=== PATIENT | female | born 1995 | race Caucasian/White ===

== ENCOUNTER 2024-08-13 02:03 | Inpatient (IN) | payer BC ==
[~2024-08-13] VITALS: Ht 215.9 cm; Wt 69.9 kg
[2024-08-13 02:14] VITALS: O2SAT 100
[2024-08-13 03:25] LABS: HEMATOCRIT. 41.8 % (36.0-48.0); HEMOGLOBIN. 14.1 g/dL (12.0-16.0); MEAN CORPUSCULAR HEMOGLOBIN 30.5 pg (28.0-32.0); MEAN CORPUSCULAR HGB CONC 33.6 g/dL (31.0-37.0); MEAN CORPUSCULAR VOLUME 90.7 fL (81.0-99.0); MEAN PLATELET VOLUME 8.5 fl (7.4-10.4); PLATELET 230 x1000/uL (130-400); RED BLOOD CELL COUNT 4.61 mill/uL (4.2-5.4); RED CELL DISTRIBUTION WIDTH 13.2 % (11.6-14.6); WHITE BLOOD COUNT 11.9 x1000/uL (4.5-11.0)
[2024-08-13 03:28] LABS: CLARITY URINE CLOUDY (CLEAR); COLOR URINE DARK YELLOW (YELLOW); GLUCOSE URINE NEGATIVE (NEGATIVE); KETONES URINE 1+ (NEGATIVE); LEUKOCYTE ESTERASE URINE 2+ (NEGATIVE); NITRITE URINE POSITIVE (NEGATIVE); OCCULT BLOOD URINE NEGATIVE (NEGATIVE); PH URINE 6.5 (4.5-8.0); PROTEIN URINE 1+ (NEGATIVE); SPECIFIC GRAVITY URINE 1.017 (1.005-1.030)
[2024-08-13 03:29] LABS: CHLORIDE 103 mEq/L (98-107); POTASSIUM 4.2 mEq/L (3.5-5.1); SODIUM 138 mEq/L (136-145)
[2024-08-13 03:30] LABS: CALCIUM 9.8 mg/dL (8.7-10.4); CARBON DIOXIDE 25 mEq/L (21-32)
[2024-08-13 03:35] LABS: CREATININE 0.7 mg/dL (0.6-1.0); GLUCOSE 169 mg/dL (70-105); UREA NITROGEN BLOOD 9 mg/dL (9-23)
[2024-08-13 03:37] LABS: ALANINE AMINOTRANSFERASE 1018 IU/L (10-49); ASPARTATE AMINOTRANSFERASE 900 IU/L (<34); BILIRUBIN DIRECT 2.6 mg/dL (<=3.0); BILIRUBIN TOTAL 4.2 mg/dL (0.1-1.0); PROTEIN TOTAL 7.9 g/dL (6.0-8.3)
[2024-08-13 03:54] LABS: DIFFERENTIAL COMMENT 1
[2024-08-13 04:02] LABS: SQUAMOUS EPITHELIAL CELL URINE FEW /lpf (RARE/1+)
[2024-08-13 04:05] LABS: BACTERIA URINE 4+; RBC URINE 0-2 /hpf (0-2)
[2024-08-13] MEDS: SODIUM CHLORIDE 0.9% 1,000 ML IV ONE ×2 (04:19→04:51)
[2024-08-13] MEDS: MORPHINE SULFATE 4 MG/ML INJ (FOR IV/IM USE) IV STA (04:20)
[2024-08-13] MEDS: ONDANSETRON HCL 4MG/2ML INJ IV STA (04:20)
[2024-08-13] MEDS: CEFTRIAXONE 1GM/50ML 50 ML IV ONE (04:57)
[2024-08-13 05:22] LABS: PLATELET ESTIMATE NORMAL
[2024-08-13 06:15] VITALS: BP 118/76; PULSE 75; RESP 18; TEMP 36.3
[2024-08-13 08:00] VITALS: BP 118/76; PULSE 75; RESP 18; TEMP 36.2
[2024-08-13] MEDS: ACETAMINOPHEN 325MG TABLET PO PRN (11:19)
[2024-08-13 12:00] VITALS: BP 112/72; PULSE 79; RESP 18; TEMP 36.6
[2024-08-13] MEDS ORDERED: ONDANSETRON HCL 4MG/2ML INJ IV PRN (13:30)
[2024-08-13] MEDS ORDERED: ACETAMINOPHEN 325MG TABLET PO PRN (13:30)
[2024-08-13] MEDS: SODIUM CHLORIDE 0.9% 1,000 ML IV SCH (14:14)
[2024-08-13 14:19] LABS: UCG SCREEN NEGATIVE
[2024-08-13 16:00] VITALS: BP 104/75; PULSE 78; RESP 17; TEMP 36.7
[2024-08-13 20:00] VITALS: BP 98/56; PULSE 89; RESP 12; TEMP 36.7
[2024-08-14] VITALS: BP 108/66; PULSE 81; RESP 14; TEMP 36.2; O2SAT 97
[2024-08-14 04:00] VITALS: BP 110/72; PULSE 90; RESP 16; TEMP 36.3; O2SAT 99
[2024-08-14 04:34] VITALS: TEMP 97.2
[2024-08-14] MEDS: CEFTRIAXONE 1GM/50ML 50 ML IV SCH (05:21)
[2024-08-14] MEDS ORDERED: PANTOPRAZOLE SODIUM 40 MG/VIAL IV SCH (09:00)
== END 2024-08-14 06:35 | disposition left against medical advice (07) | DRG 444 ==
LOC: ER 02:03 → 6EST 05:25 → EDBEDREQTM 05:37 → EDBEDREQ 05:37 → ENRESERV 05:43 → CANRESERV 05:43 → ENRESERV 05:50
PROVIDERS: ADMIT Internal Medicine; ATTEND Internal Medicine
DX: K80.20 Calculus of gallbladder without cholecystitis without obstruction (principal); K85.90 Acute pancreatitis without necrosis or infection, unspecified; N39.0 Urinary tract infection, site not specified; K59.00 Constipation, unspecified; Z79.899 Other long term (current) drug therapy; Z53.29 Procedure and treatment not carried out because of patient's decision for other reasons
CPT/HCPCS: 36415; 74176; 76705; 80048; 80076; 81003; 81025; 85025; 87077; 87186; 99285; A4606; J0696; J2270; J2405; J7030